=== PATIENT | male | born 1985 | race Caucasian/White ===

== ENCOUNTER 2024-10-12 04:08 | Observation (INO) | payer BC, SELFPAY ==
[2024-10-12] VITALS (8 sets, daily range): BP systolic 89–115; BP diastolic 59–87; BMI 32.8
--- NOTE | 2024-10-12 00:18 | ED.GENMED ---
History of Present Illness
General
Chief Complaint: Rectal Bleeding
Source: patient
Exam Limitations: none
Time Seen by Provider: 10/12/24 00:18
History of Present Illness
History of Present Illness:
See MDM
Past History
Past History
ED Past Medical History: Other (Crohns)
ED Past Surgical History: Bowel resection
Social History
Tobacco: Non-smoker
Alcohol: None
Phy Exam
Physical Exam
Physical Exam:
See MDM
Course
Orders/Labs/Results
Orders:
Orders
10/12/24 00:23
Electrocardiogram (*1) Urgent
Reason for Study: Syncope
EKG- Treatment ONCE
10/12/24 00:40
Type+Screen Urgent
Complete Blood Count/With Diff Urgent
Comprehensive Metabolic Panel Urgent
10/12/24 01:15
ABO2 Urgent
BBK Wristband Number:
Associate notified that ABO2 has been ordered: [id number]
Date: 10/12/24
Time: 01:10
Tag Stringer ID: [id number]
10/12/24 01:44
0.9% Sodium Chloride 1000 ml [Nss] 1,000 ml IV BOLUS
10/12/24 03:53
Admit/Transfer Patient As Directed
Co-Sign Provider:
Level of Care: Observation services
Assign to:: Medical/Surgical
Physician / Group: hospitalist
Diagnosis: rectal bleeding
Code Status As Directed
Resuscitation Status: Full Code
PRN Pain Medication Management As Directed
May give lesser potent ordered pain med per pt: Yes
preference::
Protocol:: Medication orders for pain may be administered in a
manner that supports deferring to patient preference
when the pt is:
- Requesting an ordered lesser potent pain medication.
Least to most potent pain medications are defined
as: acetaminophen < NSAID < tramadol < opioids
(morphine, oxycodone, hydromorphone).
- Requesting a lesser dose of the same medication IF
ORDERED.
- Requesting a less intrusive route of administration
if both routes are prescribed by the provider (PO <
IV).
Abnormal Lab Results
10/12/24
00:40
WBC 11.0 H 10^3/uL
(4.8-10.8)
RBC 4.57 L 10^6/uL
(4.70-6.10)
MPV 12.0 H fL
(7.4-10.4)
Abs Immat Gran (auto) 0.1 H 10^3/uL
(0-0.05)
Absolute Neuts (auto) 7.4 H 10^3/uL
(1.4-6.5)
Absolute Monos (auto) 1.2 H 10^3/uL
(0.1-0.6)
Lymphocytes % 18.5 L %
(20.5-51.1)
Monocytes % 10.5 H %
(1.7-9.3)
10/12/24 00:40
10/12/24 00:40
Vital Signs
Initial and Last Documented VS:
Initial Vital Signs
Temp Pulse
98.3 F 66
10/12/24 00:23 10/12/24 00:23
Last Documented Vital Signs
Temp Pulse Resp BP Pulse Ox
98.3 F 75 17 104/68 98
10/12/24 00:23 10/12/24 04:00 10/12/24 03:30 10/12/24 04:00 10/12/24 04:00
MDM/Problems Addressed
Differential Diagnosis Includes:
HPI and MDM Narrative:
39-year-old male presenting for evaluation of rectal bleeding. Patient has a history of Crohn's disease where he is on daily Rinvoq. He had his yearly colonoscopy earlier today. The colonoscopy report is at bedside indicating that there is
ulceration at his bowel anastomosis. Tissue samples were obtained. Patient states he had a bowel resection about 14 years ago. He is not on blood thinners. He had a normal bowel movement at 5 PM. Since then, patient has had multiple episodes of
bright red rectal bleeding. Because of this, patient is becoming lightheaded when he stands up. He is concerned for blood transfusion. He denies any fevers or abdominal pain
Physical exam
General: Well appearing and non-toxic
HEENT: protecting airway
Neck: appears supple
CV: No evidence of cyanosis
Resp: No accessory muscle use
Abd: Non-distended. Soft and nontender
Extremities: No deformities
Neuro: alert
Psych: Normal affect
Skin: Intact
Problems Addressed including Acute and Chronic Conditions affecting care:
1. Rectal bleeding
Acuity: acute
Prognosis: stable
Details: Most likely in the setting of bleeding from tissue samples taken during his colonoscopy earlier today. Will obtain hemoglobin testing
Updates
Hemoglobin stable but patient has had a few large bright red bleeding episodes. Patient becomes dizzy with exertion. Symptoms resolved when he lays down. Given the ongoing bleeding, will admit for hemoglobin trending
4:15 AM patient was already admitted and he had a regular bowel movement. Patient now requesting to be discharged home. I did relay this to the admitting hospitalist who will leave the disposition up to me. I did discuss with the patient that 1
episode of normal stool does not mean the bleeding has resolved. Patient acknowledges this and understands risks of going home
Due to the current electronic medical record, patient status was initially admission. Because of this, I cannot print discharge information. Patient was given verbal discharge information and verbally acknowledged my concerns.
Differential Diagnosis (but not limited to): Lower GI bleeding, internal hemorrhoid
Testing considered: CT abdomen/pelvis but he has no abdominal pain
Drug therapy (if applicable): OTC meds, please see d/c instruction regarding Rx drugs
Amount and/or Complexity of Data Reviewed
Clinical info obtained from: Patient
External data reviewed: N/A
Labs I independently reviewed (but not limited to): Hemoglobin stable
Radiology: N/A
Pulse Ox: not hypoxic
EKG independently reviewed: N/A
Turner And Former Automatic: N/A
Critical Care: N/A
Risk of Complication:
Social Determinants of health: Good social support
Discussed with other providers: Hospitalist
Escalation of Care includes Admit/Obs: Patient was initially going to be admitted due to ongoing bleeding but requested to be discharged home after only 1 episode of normal bowel movment
Occasional wrong word or 'sound a like' substitutions may have occurred due to the inherent limitations of voice recognition software. Read the chart carefully and recognize, using context, where substitutions have occurred.
*Critical Care Note
Total Time (30-74mins, 75-104mins- exclusive of procedures): Not Applicable
ED Attending Note
-
Portions of this chart may have been created with voice recognition software.� Occasional wrong word or��sound alike� substitutions may have occurred due to the inherent limitations of voice recognition software.
Discharge Plan
Departure
Patient Disposition: Home (Routine Discharge)
Date of Disposition: 10/12/24
Time of Disposition: 02:03
Admit to: Med/Surg
Presentation/result/management discussed w/ accepting MD/DO: Hospitalist
Patient with high blood pressure during this ER visit?: No
Discharge Problem:
Acute GI bleeding
Interventions
Interventions:
*Risk Screen - Suicide Last Done: 10/12/24 00:23
*General Assessment Last Done: 10/12/24 00:23
*Neglect/Abuse Screening Last Done: 10/12/24 00:23
*ED COVID-19 Vaccine History Last Done: 10/12/24 00:29
KA-Tjhstz-Bskfjvjbud Assessment Last Done: 10/12/24 00:30
ED- Cardiac Assessment Last Done: 10/12/24 00:30
ED- Pulmonary Assessment Last Done: 10/12/24 00:30
[2024-10-12 00:53] LABS: % Basophils 0.5 % (0-2); % Eosinophils 2.6 % (0-6); % Immature Granulocytes 0.5 % (0-0.5); % Lymphocytes 18.5 % (20.5-51.1); % Monocytes 10.5 % (1.7-9.3); % Neutrophils 67.4 % (42.2-75.2); Absolute Basophils 0.1 10^3/uL (0-0.2); Absolute Eosinophils 0.3 10^3/uL (0-0.7); Absolute Immature Granulocytes 0.1 10^3/uL (0-0.05); Absolute Monocytes 1.2 10^3/uL (0.1-0.6); Absolute Neutrophils 7.4 10^3/uL (1.4-6.5); Hematocrit 39.9 % (39.0-52.0); Hemoglobin 13.4 g/dL (13.0-18.0); Mean Corp Hgb Conc. 33.6 g/dL (33.0-37.0); Mean Corpuscular Hgb 29.3 pg (27.0-31.0); Mean Corpuscular Volume 87.3 fL (80.0-94.0); Nucleated Red Blood Cells % 0 % (-); Platelet Count 159 10^3/uL (130-400); Red Blood Cell Count 4.57 10^6/uL (4.70-6.10); Red Cell Dist. Width 12.7 % (11.5-14.5)
[2024-10-12 01:11] LABS: ALT (SGPT) 31 U/L (0-50); AST (SGOT) 24 U/L (17-59); Albumin 4.2 g/dl (3.5-5.0); Alkaline Phosphatase 59 U/L (38-126); Blood Urea Nitrogen 14 mg/dl (9-20); Carbon Dioxide 25 mmol/L (22-30); Chloride 102 mmol/L (98-107); Estimated Creatinine Clearance > 125 ml/min; Glucose 98 mg/dl (70-99); Potassium 4.1 mmol/L (3.5-5.1); Sodium 139 mmol/L (135-145); Total Bilirubin 1.1 mg/dl (0.2-1.3); Total Protein 6.9 g/dl (6.3-8.2); eGFR > 60.00
[2024-10-12] MEDS: NSS 1000 IV (01:49)
--- NOTE | 2024-10-12 04:07 | HPS.HSE ---
Family Physician
-
Family Physician: Chitra Barragan
Chief Complaint
-
rectal bleeding status post 4 routine colonoscopy yesterday.
History of Present Illness
This is a 39-year-old with past medical history of Crohn's disease who status post bowel resection and gets routine yearly screening comes in the emergency department with recurrent bloody bowel movements after arriving home status post colonoscopy.
Patient reports him being in usual state health prior to procedure. He denies any use of NSAIDs. He denies any aspirin or blood thinners. He had a routine yearly colonoscopy due to his Crohn's disease. Patient the procedure itself was
uneventful. He did appear to have an old ulcer at the site of the prior anastomosis. He reported that there was a biopsy done and patient went home without any issues.
Upon arrival at home he had a bowel movement that was initially bloody. Then he started having bloody bowel movements with small amount of blood was every 15 minutes until it turned into almost a continuous bloody bowel movement since. He felt
lightheaded. He called his physician and while talking to his physician patient was presyncopal. He was advised to come to the emergency department.
In the ED the patient has had 1 bloody bowel movement over the last 3 hours. He denies having any abdominal pain. He denies fevers or chills. He currently denies feeling dizzy or lightheaded.
He was afebrile with a temp of 38.3 blood pressure of 98/63 with a pulse of 6477% on room air. Hemoglobin was 13.4 and white count was 11 with a normal platelet count. Electrolytes BUN/creatinine were within normal limits.
Medical History
Past Medical History
Past Medical History: Reports Other (Crohn's disease)
Past Surgical History: Reports Bowel Resection
Social History
Tobacco: Non-smoker
Alcohol: None
Drug: None
Personal:
Living: With Family
Employment: Employed
Family History
Family History: Not pertinent
Allergies / Home Medications
Allergies reflects when Allergies were last updated in [facility].
Home Medications with original date entered in [facility]
Allergy/Medication List:
Allergies
Allergy/AdvReac Type Severity Reaction Status Date / Time
No Known Allergies Allergy Unverified 10/05/23 11:56
Home Medications
upadacitinib 45 mg tablet,extended release 24 hr (Rinvoq) 15 mg PO DAILY 10/05/23
Review of Systems
-
Constitutional: Reports No Symptoms
EENT: Reports No Symptoms
Respiratory: Reports No Symptoms
Cardiac: Reports No Symptoms
Abdomen/GI: Reports Bloody Stools
: Reports No Symptoms
Musculoskeletal: Reports No Symptoms
Skin: Reports No Symptoms
Neurological: Reports No Symptoms
Endocrine: Reports No Symptoms
Hematologic/Lymphatic: Reports No Symptoms
Psych: Reports No Symptoms
Physical Exam
Vital Signs
Vital Signs
Temp Pulse Resp BP Pulse Ox
98.3 F 75 17 104/68 98
10/12/24 00:23 10/12/24 04:00 10/12/24 03:30 10/12/24 04:00 10/12/24 04:00
Physical Exam
General: Well Developed, Well Nourished, No Apparent Distress and Comfortable
HEENT: NormoCephalic, Anicteric, Moist mucous membranes and Atraumatic
Respiratory: Clear
Cardiac: S1/S2 and Regular Rhythm
Breast: Deferred by me
GI: Soft, Non Tender, Non Distended and Normal Bowel Sounds
Genito-urinary: Deferred by me
Musculoskeletal: No Clubbing, No Cyanosis and No Edema
Skin: Warm
Neuro: AO x 3
Hematologic/Lymphatic: No Lymphadenopathy
Psych: Calm
Laboratory Results
-
10/12/24 00:40
10/12/24 00:40
Laboratory Results
Total Bilirubin 1.1 mg/dl (0.2-1.3) 10/12/24 00:40
AST 24 U/L (17-59) 10/12/24 00:40
ALT 31 U/L (0-50) 10/12/24 00:40
Alkaline Phosphatase 59 U/L (38-126) 10/12/24 00:40
Data Reviewed
-
Lab Data: Labs Reviewed by me
Old Records: Reviewed
Impression/Plan
-
IMPRESSION:
Rectal bleeding status post colonoscopy and biopsy. During the current colonoscopy the patient did have an apparent chronic ulcer at the anastomosis. No nsaids, asa or thinners.
PLAN:
1. GI bleed - Post colonoscopy completion versus rectal ulcer bleeding. HD stable. Hgb stable thus far. One bleeding episdoe in ED.
- admit to med-surg obs for now
- will advance diet as patient has not had a bm for some time
- laxatives with diet for now
- monitor bms, trend h/h
- type and screen in am
- held off GI consult unless continues to have bleeding.
DVT PPX - SCDs
Code status - Full code
UPDATE - Patient discharged from ED. Repeat bowel movements without blood, no dizziness and SBP stable. Will follow with GI.
== END 2024-10-12 05:05 | disposition home or self-care (01) ==
LOC: ED 04:08
PROVIDERS: ADMITTING PHYSICIAN Internal Medicine; EMERGENCY PHYSICIAN Student in an Organized Health Care Education/Training Program; FAMILY PHYSICIAN Internal Medicine Gastroenterology
DX: K91.840 Postprocedural hemorrhage of a digestive system organ or structure following a digestive system procedure (principal); Y83.8 Other surgical procedures as the cause of abnormal reaction of the patient, or of later complication, without mention of misadventure at the time of the procedure; Y73.0 Diagnostic and monitoring gastroenterology and urology devices associated with adverse incidents; Y92.9 Unspecified place or not applicable; K62.5 Hemorrhage of anus and rectum; K50.911 Crohn's disease, unspecified, with rectal bleeding; R55 Syncope and collapse; R42 Dizziness and giddiness; Z90.49 Acquired absence of other specified parts of digestive tract
CPT/HCPCS: 80053; 85025; 86850; 86900; 86901; 93005; 96360; 99284; G0378

== ENCOUNTER 2024-10-14 14:15 | Inpatient (IN) | payer BC, SELFPAY ==
[2024-10-14 09:50] VITALS: BP 144/90
--- NOTE | 2024-10-14 10:47 | ED.GENMED ---
History of Present Illness
General
Chief Complaint: Rectal Bleeding
Source: patient
Exam Limitations: none
Time Seen by Provider: 10/14/24 10:22
Nursing documentation reviewed up to this point in time: agreed with
History of Present Illness
History of Present Illness:
39 yo male w h/p Crohn's disease, 10 yrs ago colon and small intestine resection with colostomy that was reversed, here for rectal bleeding post colonoscopy 3 days ago at [place]. Had some rectal bleeding later that day with syncopal episode and
came here that night, had Hgb 13.4 (from 14.5 mamta week prior), observed overnight and sent home next day as no further bleeding.
2 days ago had no bloody stools.
Yesterday 2 a.m. had BM with 'some but not much blood.'
Today no blood in stool this a.m.
States he feels 'not dizzy but a little lightheaded.' 'I don't feel like myself.'
Reports that GI Dr. Escobar contacted our GI doctor and was told he would be admitted for a colonoscopy.
Denies CP, SOB, abdominal pain.
Past History
Past History
ED Past Medical History: Other (Crohns)
ED Past Surgical History: Bowel resection
Social History
Tobacco: Non-smoker
Alcohol: Occasional
Personal:
Living: with family
Employment: Employed
Review of Systems
Review of Systems
Allergies reviewed?: Yes
All Other Systems: ROS reviewed and negative except as documented in HPI and ROS
Constitutional: Denies fever or fatigue
Respiratory: Denies trouble breathing
Cardiac: Denies chest pain
ABD/GI: Reports bloody stools; Denies abdominal pain, nausea, vomiting or diarrhea
: Denies dysuria or difficulty voiding
Musculoskeletal: Reports no symptoms
Skin: Reports no symptoms
Neurological: Reports no symptoms
Phy Exam
Physical Exam
Physical Exam:
GENERAL: No acute distress. A&Ox3.
CONSTITUTIONAL: Afebrile.
EYES: Clear, conjunctivae normal
ENMT: pink, moist mucus membranes, Pharynx nl
RESPIRATORY: Regular respirations, nonlabored, lungs clear.
CARDIOVASCULAR: Regular rate and rhythm, no murmurs, no rubs.
GI: Soft, nontender, normal BS
Rectal: No stool, mucus with a pink joelle hematests positive.
MUSCULOSKELETAL: Moves with ease. Well perfused.
SKIN: Warm, dry, pink
PSYCH: Normal mood and affect. Well kept, interactive and appropriate
NEUROLOGIC: Awake, alert and oriented. No focal neurological deficits
Course
Orders/Labs/Results
Orders:
Orders
10/14/24 Lunch
NPO
Allow oral meds: No
Allow clear liquids: No
NPO with Ice Chips: No
10/14/24 10:43
Complete Blood Count/With Diff Urgent
Erythrocyte Sed Rate Urgent
Comment: ESR ADDED ON BY FLOOR 2:20PM 10-14-24
10/14/24 10:52
Prothrombin Time Urgent
10/14/24 11:44
Consult Gastroenterology [GASTROINTESTINAL CONSULT] Urgent
Consulting Provider: Darling Flaherty
Was physician already notified: Yes
Reason for consult: rectal bleed post colonoscopy
10/14/24 13:06
Admit/Transfer Patient As Directed
Co-Sign Provider:
Level of Care: Inpatient admission
Assign to:: Medical/Surgical
Physician / Group: Hospitalist
Diagnosis: Hematochezia
Reason for Hospitalization: Hematochezia
Expected length of stay greater than two midnights?: Yes
ELOS- Estimated Length of Stay in days: 3
I certify the patient meets the requirements for IP care: Yes
10/14/24 13:07
PRN Pain Medication Management As Directed
May give lesser potent ordered pain med per pt: Yes
preference::
Protocol:: Medication orders for pain may be administered in a
manner that supports deferring to patient preference
when the pt is:
- Requesting an ordered lesser potent pain medication.
Least to most potent pain medications are defined
as: acetaminophen < NSAID < tramadol < opioids
(morphine, oxycodone, hydromorphone).
- Requesting a lesser dose of the same medication IF
ORDERED.
- Requesting a less intrusive route of administration
if both routes are prescribed by the provider (PO <
IV).
10/14/24 13:08
Code Status As Directed
Resuscitation Status: Full Code
10/14/24 13:14
Bisacodyl [Dulcolax] 10 mg RECTAL [id number] PRN
Docusate W/Senna [Senokot-S] 1 tablet PO BIDPRN PRN
Polyethylene Glycol Powder [Miralax] 17 grams PO DAILYPRN PRN
10/14/24 14:09
Bisacodyl [Dulcolax] 10 mg PO NOW STA
10/14/24 15:00
Colyte Peg Electrolyte Soln [Nulytely Solution] 4 liters PO ONCE ONE
10/14/24 15:21
Flush (0.9% Sodium Chloride) [Flush (Nss)] See Dose Instructions IV PER PROTOCOL
10/14/24 15:21
Activity As Directed
Activity Level: Out of Bed-Early Mobility
INT (Intravenous Needle Therapy) As Directed
Comment: Place 2 IV catheters of the largest bore possible until stable
Orthostatic Vital Signs As Directed
Orthostatic VS Frequency: Now
Comment: then every four hours for twenty-four hours
Pneumatic Compression Sleeves As Directed
Type: Knee high
Vital Signs As Directed
Frequency: Per unit guidelines
DX Deep Vein Thrombosis Video Routine
10/15/24 06:00
Complete Blood Count/No Diff IN AM
Complete Blood Count/With Diff IN AM
10/15/24 08:00
upadacitinib [Rinvoq] See Dose Instructions PO DAILY
Abnormal Lab Results
10/14/24
10:43
RBC 3.84 L 10^6/uL
(4.70-6.10)
Hgb 11.3 L g/dL
(13.0-18.0)
Hct 33.6 L %
(39.0-52.0)
MPV 11.8 H fL
(7.4-10.4)
Absolute Monos (auto) 0.7 H 10^3/uL
(0.1-0.6)
Monocytes % 9.9 H %
(1.7-9.3)
10/14/24 10:43
Vital Signs
Initial and Last Documented VS:
Initial Vital Signs
Temp Pulse Resp BP Pulse Ox
98.4 F 63 16 144/90 98
10/14/24 09:50 10/14/24 09:50 10/14/24 09:50 10/14/24 09:50 10/14/24 09:50
Last Documented Vital Signs
Temp Pulse Resp BP Pulse Ox
98 F 62 18 124/75 100
10/14/24 15:45 10/14/24 12:00 10/14/24 15:45 10/14/24 10:55 10/14/24 15:45
MDM/Problems Addressed
MDM/Problems Addressed:
39 yo male w h/p Crohn's disease, 10 yrs ago colon and small intestine resection with colostomy that was reversed, here for rectal bleeding post colonoscopy 3 days ago at [place]. Had some rectal bleeding later that day with syncopal episode and
came here that night, had Hgb 13.4 (from 14.5 one week prior), observed overnight and sent home next day as no further bleeding.
2 days ago had no bloody stools.
Yesterday 2 a.m. had BM with 'some but not much blood.'
Today no blood in stool this a.m.
States he feels 'not dizzy but a little lightheaded.' 'I don't feel like myself.'
Reports that GI Dr. Escobar contacted our GI doctor and was told he would be admitted for a colonoscopy.
Denies CP, SOB, abdominal pain.
Appears well, NAD, VSS
11:[address] with [address] Escobar She states she saw active disease in the terminal ilium and at the anastomosis site, main concern is that whenever pt eats it seems to stimulate stools with bleeding.
She spoke with our GI Dr. Flaherty and expects pt to have colonoscopy today or tomorrow.
11:30
Hgb now 11.[address] Flaherty
Plan: Admit to Hospitalist, GI consult in
Hospitalist notified of admission
*Critical Care Note
Total Time (30-74mins, 75-104mins- exclusive of procedures): Not Applicable
ED Attending Note
-
Portions of this chart may have been created with voice recognition software.� Occasional wrong word or��sound alike� substitutions may have occurred due to the inherent limitations of voice recognition software.
Discharge Plan
Departure
Patient Disposition: Admit
Date of Disposition: 10/14/24
Time of Disposition: 11:42
Admit to: Med/Surg
Presentation/result/management discussed w/ accepting MD/: Hospitalist
Condition: Good
Discharge Problem:
Acute GI bleeding
Interventions
Interventions:
*Risk Screen - Suicide Last Done: 10/14/24 09:50
*General Assessment Last Done: 10/14/24 10:55
*Neglect/Abuse Screening Last Done: 10/14/24 09:50
ED- Fall Risk Assessment Last Done: 10/14/24 10:55
*ED COVID-19 Vaccine History Last Done: 10/14/24 10:55
*Nursing Disposition Last Done: 10/14/24 15:21
PL-Bsvqjm-Muippxzmku Assessment Last Done: 10/14/24 10:55
ED- Cardiac Assessment Last Done: 10/14/24 10:55
ED- Pulmonary Assessment Last Done: 10/14/24 10:55
Discharge Date and Time
Discharge Date/Time: 10/14/24 15:21
[2024-10-14 10:55] VITALS: BP 124/75; BMI 25.9
[2024-10-14 11:08] LABS: % Basophils 0.7 % (0-2); % Eosinophils 4.4 % (0-6); % Immature Granulocytes 0.4 % (0-0.5); % Lymphocytes 31.3 % (20.5-51.1); % Monocytes 9.9 % (1.7-9.3); % Neutrophils 53.3 % (42.2-75.2); Absolute Basophils 0.1 10^3/uL (0-0.2); Absolute Eosinophils 0.3 10^3/uL (0-0.7); Absolute Lymphocytes 2.2 10^3/uL (1.2-3.4); Absolute Monocytes 0.7 10^3/uL (0.1-0.6); Absolute Neutrophils 3.8 10^3/uL (1.4-6.5); Hematocrit 33.6 % (39.0-52.0); Hemoglobin 11.3 g/dL (13.0-18.0); Mean Corp Hgb Conc. 33.6 g/dL (33.0-37.0); Mean Corpuscular Hgb 29.4 pg (27.0-31.0); Mean Corpuscular Volume 87.5 fL (80.0-94.0); Mean Platelet Volume 11.8 fL (7.4-10.4); Nucleated Red Blood Cells % 0 % (-); Platelet Count 167 10^3/uL (130-400); Red Blood Cell Count 3.84 10^6/uL (4.70-6.10); Red Cell Dist. Width 13.2 % (11.5-14.5); White Blood Cell Count 7.1 10^3/uL (4.8-10.8)
[2024-10-14 11:11] LABS: PT 13.5 Sec (11.4-14.6)
--- NOTE | 2024-10-14 13:17 | CON.GI ---
Addendum entered and electronically signed by Darling Thompson Do, MD 10/14/24 17:58:
I personally performed a history and physical exam of the patient and discussed management with the resident. I reviewed the resident's note and agree with the documented findings and plan of care HPI/CC.
[place] is a 39yo M with h/o Crohn's colitis and ileitis s/p colectomy on rinvoq managed by Dr Barragan at [facility]. He had routine colonoscopy on Monday and post procedure had hematochezia. He was in ER and returned when it did not subside. No AC or
chronic nsaid. Vitals stable. NTTP, NABS, surgical scars well healed. Labs Hbg 11.
Impression
- Post colonoscopy hematochezia
Suspect from bx at the ileocolonic anastomosis ulcer
- Anemia
- Crohn's disease
Recommendations
- CLD, NPO at [facility] for colonoscopy tomorrow
- Golylte prep now
- Monitor serial H/H
- Dr Barragan his OP GI updated
updated bedside. Will follow with you
Original Note:
Consultation
-
Date/Time Consultation Requested: 10/14/24,11:44
Date/Time Consultation Performed: 10/14/24,13:20
Requesting Provider: Sheela Gonsalez
Performing Provider: Darling Flaherty
Reason for Consultation: Post-colonoscopy bleed
Medical History
Chief Complaint / HPI
Chief Complaint: Blood in stools post colonoscopy -3 days
History of Present Illness:
Patient is a 39-year-old male with past medical history of upadacitinib managed Crohn's disease who underwent routine yearly surveillance colonoscopy 2 days ago. The procedure went well and he had no issues, he went home and noticed small amount of
blood in the stools that gradually became more and more along with increased frequency of stools. He called his doctor who suggested to visit the emergency if it persists. As he was going to the washroom he had a syncopal episode and he fell
down,911 was called and he was brought to the emergency on Monday double end sewer on 10/12/24. On repeating the blood work his hemoglobin has dropped by 1 point in less than a day. He was kept under observation and was discharged when he had no
bloody bowel movements by the evening. He went home and had soup, the next day he had a bagel and was all right but then he again had blood in stools, he observed if it would stop but he had another bowel movement with blood and he also developed a
headache so he came to the emergency for further evaluation.
He says that the blood in stools have progressively decreased over time, and now it is mixed with stools rather than pure blood. He otherwise feels well and has no fever ,chills, abdominal pain, loss of appetite, syncopal episodes. He is able to
go to the washroom by himself and has no issues with sleep or appetite. Patient was referred by for repeat colonoscopy to identify any source of bleed and management as appropirate.
Colonoscopy revealed a superficial ulcer close to issac terminal anastomosis and it was biopsied,no polyps were seen or removed.
Past Medical History
Past Medical History: Other (crohns disease)
Past Surgical History: Bowel Resection (Ileostomy reversal done 13 years ago,no issues since then) and Other
Social History
Tobacco: Non-Smoker
Alcohol: Occasional
Drug: None
Personal:
Living: With Family
Employment: Employed
Family History
Family History: Reviewed & Not Pertinent
Allergies / Home Medications
Allergy/AdvReac Type Severity Reaction Status Date / Time
No Known Allergies Allergy Verified 10/14/24 09:55
�Medication �Instructions �Recorded
upadacitinib 45 mg tablet,extended 15 mg PO DAILY 10/05/23
release 24 hr (Rinvoq)
Review of Systems
-
All other systems: A 12 pt ROS was Negative except as stated above in HPI
Vital Signs
Temp Pulse Resp BP Pulse Ox
97.6 F 68 19 124/75 99
10/14/24 10:55 10/14/24 11:15 10/14/24 11:15 10/14/24 10:55 10/14/24 10:55
Physical Exam
Exam
General: Well Developed, Well Nourished and No Apparent Distress
HEENT: Anicteric and Moist Mucous Membranes
Respiratory: Clear and Wheezes (No ronchi,rales or wheezes)
Cardiac: S1/S2 and Regular Rhythm
GI: Soft, Non Tender and Normal Bowel Sounds
Genito-urinary: No Costovertebral Tender
Musculoskeletal: No Clubbing and No Edema
Skin: Warm and Dry
Neuro: Awake, Alert and No Motor Deficits
Hematologic/Lymphatic: No Lymphadenopathy
Psych: Calm
Results
WBC 7.1 10^3/uL (4.8-10.8) 10/14/24 10:43
Hgb 11.3 g/dL (13.0-18.0) L 10/14/24 10:43
Hct 33.6 % (39.0-52.0) L 10/14/24 10:43
MCV 87.5 fL (80.0-94.0) 10/14/24 10:43
Plt Count 167 10^3/uL (130-400) 10/14/24 10:43
Absolute Neuts (auto) 3.8 10^3/uL (1.4-6.5) 10/14/24 10:43
PT 13.5 Sec (11.4-14.6) 10/14/24 10:52
INR 1.00 10/14/24 10:52
Diagnostic Image Results:
Prior GI Procedures:
EGD:
Colonoscopy: Annually, Last one
Colonoscopy revealed a superficial ulcer close to issac terminal anastomosis and it was biopsied,no polyps were seen or removed
Assessment / Plan
-
IMPRESSION
Patient is a 39-year-old male with Rinvoq managed Crohn's disease, had usual annual colonoscopy done on October 11, 2024, and ulcer was biopsied near the ileocecal valve, procedure went well with no issues. Patient started to bleed later in the
evening and was ultimately admitted to the hospital for a syncopal episode, he was observed for blood in the stools and he left AMA once there were stools with no bleed. He says that the bleeding has gradually decreased in amount and is now just
mixed with stool. He does not want to stay in the hospital again today and wants an urgent colonoscopy.
The cause of bleed post colonoscopy could be biopsy site/friable mucosa/infectious/ischemic.
No syncopal episodes in last 24 hours
Hemoglobin drop to 11.3 from 13.42 days ago
Still has blood in stools, last bowel movement with mixed blood in our ago
Denies any fever, chills, nausea, vomiting,
Reports some mild chest pain
ASSESSMENT/PLAN
Post colonoscopy bleeding from the biopsy site?
Infection
Rectal ulcer bleed
Hemorrhoids
Bleeding from friable mucosa/perforation
ischemic colitis
NPO
Start bowel prep for repeat colonoscopy
Counseled patient about the possible management plans
Monitor H&H
Monitor stool for any blood
Stool studies
Inflammatory markers
-
-
Thank you for consultation and allowing me to participate in the patient's care. Please call the [employer] consultant GI physician during the after hours with any questions or concerns.
--- NOTE | 2024-10-14 13:40 | HPS.HSE ---
Family Physician
-
Family Physician: Anny Rasmussen MD
Chief Complaint
-
Rectal bleeding
History of Present Illness
39-year-old male with PMH of Crohn's disease on daily Rinvoq, s/p small/large bowel resection 10�14 years ago (does remember exact dates), subsequently reversed, who presented to ED with recurrent BRBPR. Patient was recently seen in the ED on
10/12 days ago with rectal bleeding, dizziness on exertion, s/p colonoscopy Dr. Escobar at [facility]. Patient gets yearly colonoscopy and reported that he had a colonoscopy 3 days ago and upon return to his home, started having bloody BMs every 15
minutes which later turned into continuous bloody BMs with lightheadedness and presyncope. He called his GI doctor who instructed him to go to the ED. Patient stayed overnight and unfortunately left AMA early in the morning after having 1 episode
of nonbloody BM. He reports that yesterday, he started having another episode of gross bloody BM which slowly improved but still has some blood in his stool. He reports that his recent colonoscopy was positive for ulceration not the bowel
anastomosis and thinks that the GI doctor at [facility] has hit a blood vessel while doing colonoscopy. He currently denies dizziness, lightheadedness, abdominal pain, chest pain, shortness of breath, fever or chills. He remains hemodynamically
stable and afebrile in the ED with BP 124/75, pulse 68, respiratory 19, blood pressure 97.6 saturating at 99% on room air.
Medical History
Past Medical History
Past Medical History: Reports Other (Chron's disease)
Past Surgical History: Reports Bowel Resection
Social History
Tobacco: Non-smoker
Alcohol: None
Drug: None
Personal:
Living: With Family
Employment: Employed
Family History
Family History: Not pertinent
Allergies / Home Medications
Allergies reflects when Allergies were last updated in [facility].
Home Medications with original date entered in [facility]
Allergy/Medication List:
Allergies
Allergy/AdvReac Type Severity Reaction Status Date / Time
No Known Allergies Allergy Unverified 10/05/23 11:56
Home Medications
upadacitinib 45 mg tablet,extended release 24 hr (Rinvoq) 15 mg PO DAILY 10/05/23
Review of Systems
-
History Source: Patient and Family
A 12 point ROS was completed and negative except as noted: Yes
Constitutional: Reports No Symptoms
EENT: Reports No Symptoms
Respiratory: Reports No Symptoms
Cardiac: Reports No Symptoms
Abdomen/GI: Reports Bloody Stools
: Reports No Symptoms
Musculoskeletal: Reports No Symptoms
Skin: Reports No Symptoms
Neurological: Reports No Symptoms
Endocrine: Reports No Symptoms
Hematologic/Lymphatic: Reports No Symptoms
Psych: Reports No Symptoms
Physical Exam
Vital Signs
Vital Signs
Temp Pulse Resp BP Pulse Ox
97.6 F 68 19 124/75 99
10/14/24 10:55 10/14/24 11:15 10/14/24 11:15 10/14/24 10:55 10/14/24 10:55
Physical Exam
General: Well Developed, Well Nourished, No Apparent Distress and Comfortable
HEENT: NormoCephalic, Anicteric, Moist mucous membranes and Atraumatic
Respiratory: Clear
Cardiac: S1/S2 and Regular Rhythm
Breast: Deferred by me
GI: Soft, Non Tender, Non Distended and Normal Bowel Sounds
Genito-urinary: Deferred by me
Musculoskeletal: No Clubbing, No Cyanosis and No Edema
Skin: Warm and Dry
Neuro: Awake and AO x 3
Hematologic/Lymphatic: No Lymphadenopathy
Psych: Calm and Anxious
Laboratory Results
-
10/14/24 10:43
Laboratory Results
PT 13.5 Sec (11.4-14.6) 10/14/24 10:52
INR 1.00 10/14/24 10:52
Data Reviewed
-
Lab Data: Labs Reviewed by me
Old Records: Reviewed
Impression/Plan
-
IMPRESSION: 39-year-old male with PMH of chron's disease on daily Rinvoq, s/p small/large bowel resection 10-14 years ago, subsequently reversed, presenting with rectal bleeding s/p colonoscopy Dr. Escobar ([facility]) 10/11.
Assessment/plan:
#Hematochezia
-Admit to MedSurg.
-Hb stable at 11.3, voluminous BRBPR resolved however still having blood-streaked BMs.
-GI consulted and following.
-NPO.
-ESR, CRP.
-Stool studies.
-Colonoscopy potentially in a.m. per GI.
-Follow CBC.
#Acute blood loss anemia
-Most likely from friable GI blood vessels vs GI ulcer bleeding.
-Monitor CBC.
-Follow H&H if having recurrent bloody BMs.
DVT PPx: SCDs
CODE STATUS: Full code
--- NOTE | 2024-10-14 14:13 | EDRN ---
the pt pressed the call campos and this RN and Eleanor QUINONEZ entered the pts room, the pt stated that he wanted something to eat if he wasn't getting the colonoscopy today and if he wasn't getting the colonoscopy today he wanted to know why it couldn't
be today because the pt stated, 'I haven't eaten in two days so i have been prepping for this for two days so i either need it done today or i need food i don't understand why they can't do it today and why i have to do a prep', this RN notified the
pt that he was NPO and educated the pt and the pts on what that meant, this RN also reached out to Dr. Zulay Beavers and notified them of the pt and the pts 's concerns, the pt is resting in stretcher in the lowest position, side rails up
x2 call campos within reach, HOB elevated, no s/s of distress, will continue to monitor the pt closely
--- NOTE | 2024-10-14 14:34 | EDRN ---
the pts came out of the pts room and approached this RN at the nurses station and stated, 'I am going to need an ETA for when the doctor will get here, we have been here all day and we are tired and this is ridiculous', this RN notified the pts
that this RN would reach out to the provider again
--- NOTE | 2024-10-14 15:01 | EDRN ---
Dr. Flaherty was at the pts bedside and spoke to the pt and the pts and then left the bedside, shortly after the pts approached this RN at the nurses station and stated to this RN, 'Where is that GI doctor that was just in here', this RN
notified the pts that the provider left the unit, the pts then stated to this RN, 'Well I need you to tell her that I need my husbands colonoscopy to be the first thing that she does in the morning like the very first procedure, i need it
to be done right away', this RN notified the pts that this RN would let the provider know, this RN tiger texted Dr. Flaherty again and notified Dr. Flaherty about the pts 's wishes, the pt is resting in stretcher in the lowest position, side rails up
x2, call campos within reach, HOB elevated, no s/s of distress, the pt denies needing anything at this time, the pt was provided with a carlyle heide with ice per Dr. Flaherty's approval, this RN called the receiving unit and notified them that paper report
would be tubed up
[2024-10-14 15:09] LABS: Erythrocyte Sed Rate 19 mm/hour (0-20)
[2024-10-14] MEDS: NULYTELY SOLUTION 4 LITERS PO (15:11)
[2024-10-14 15:45] VITALS: BP 112/73; BP 127/69; BP 127/79; PULSE 70; PULSE 71; PULSE 73; BMI 32.6
--- NOTE | 2024-10-14 15:45 | PTCARENOTE ---
Received pt from ER.Pt ambulated into room without difficulty. Pt awake, alert and oriented x3, Pt has no c/o pain at this time.Pt VSS 100% on RA. Pt is drinking bowel prep, refused Dulcolax PO GI aware. Pt oriented to room,call campos within
reach,plan of care continues.
--- NOTE | 2024-10-14 18:11 | PTCARENOTE ---
Pt drank a little less than half of bowel prep, called this RN into bathroom,Pt said he is only expelling clear liquid. no visible stool noted in toilet clear along with urine. Pt requesting to be done drinking prep, reached out to GI, they would
like pt to drink full prep, Pt made aware. Pt allowed clear liquids, plan of care continues.
[2024-10-14 18:31] LABS: Hematocrit 35.6 % (39.0-52.0); Hemoglobin 12.1 g/dL (13.0-18.0)
[2024-10-14 19:55] VITALS: BP 105/69; BP 108/70; BP 116/72; PULSE 68; PULSE 71; PULSE 74
[2024-10-14] MEDS: AMBIEN 5 MG PO (21:59)
[2024-10-14 23:43] VITALS: BP 109/72; BP 113/70; BP 99/67; PULSE 63; PULSE 73; PULSE 78
[2024-10-15 03:04] LABS: Hemoglobin 10.7 g/dL (13.0-18.0)
[2024-10-15 07:20] VITALS: BP 108/64; PULSE 58
--- NOTE | 2024-10-15 07:24 | W.PN.HOSP.TC ---
Addendum entered and electronically signed by Florecita Lamb MD 10/15/24 14:33:
I saw and evaluated the patient independently. I reviewed the resident�s note and agree with findings and plan as documented by Dr. Goddard.
GENERAL: well developed, well nourished, male in no apparent distress
HEENT: NC/AT
HEART: regular rate and rhythm, +S1, +S2
LUNGS : clear to auscultation bilaterally
ABDOM: soft, nontender, nondistended, + bowel sounds
EXT: no cyanosis, clubbing, or edema
NEUROLOGIC: grossly intact
Hematochezia--Resolved, no evidence of bleeding or bloody stool--Colonoscopy positive for ulceration in ileocolic anastomosis site, with multiple scattered nonbleeding erosions from recent biopsy site, no active bleeding seen.
Acute blood loss anemia-Hb stable at 10.7-Most likely from friable GI blood vessels vs GI ulcer bleeding.
DVT PPx: SCDs
CODE STATUS: Full code
OK for d/c
Original Note:
Today's Communication/Plan
-
Discharge planning.
Assessment / Plan
Assessment / Plan
IMPRESSION: 39-year-old male with PMH of chron's disease on daily Rinvoq, s/p small/large bowel resection 10-14 years ago, subsequently reversed, presenting with rectal bleeding s/p colonoscopy Dr. Escobar ([facility]) 10/11.
Assessment/plan:
#Hematochezia
-Resolved, no evidence of bleeding or bloody stool.
-ESR WNL.
-Colonoscopy positive for ulceration in ileocolic anastomosis site, with multiple scattered nonbleeding erosions from recent biopsy site, no active bleeding seen.
#Acute blood loss anemia
-Hb stable at 10.7.
-Most likely from friable GI blood vessels vs GI ulcer bleeding.
-Monitor CBC.
DVT PPx: SCDs
CODE STATUS: Full code
Anticipated Discharge: Today
Subjective/Interval History
-
Date of Service: October 15, 2024
Patient seen and examined sitting comfortable in bed ready for his colonoscopy. He reports no chest pain shortness of breath abdominal pain nausea or vomiting.
Objective Data
-
Labs:
Laboratory Results
10/15/24 10/15/24
02:36 06:00
WBC Pending
Hgb 10.7 L Pending
Hct 31.0 L Pending
Plt Count Pending
Sodium Pending
Potassium Pending
Chloride Pending
Carbon Dioxide Pending
BUN Pending
Creatinine Pending
Glucose Pending
Calcium Pending
Total Bilirubin Pending
AST Pending
ALT Pending
Alkaline Phosphatase Pending
Vital Signs:
Vital Signs
Temp Pulse Resp BP Pulse Ox
97.5 F 70 20 127/69 99
10/14/24 23:43 10/14/24 15:45 10/14/24 23:43 10/14/24 15:45 10/14/24 23:43
I&O
10/14/24 10/15/24 10/16/24
06:59 06:59 06:59
Intake Total 720 / 720
Balance 720 / 720
Review of Systems
-
History Source: Patient
All other systems: Reviewed and negative
Physical Exam
-
General: Well Developed and No Apparent Distress
HEENT: Normocephalic, Atraumatic and Moist Mucous Membranes
Respiratory: Clear to Auscultation
Cardiac: Regular Rhythm and S1/S2; Negative Murmur, Rub or Gallop
GI: Soft, Nontender, Nondistended and Normal Bowel Sounds; Negative Organomegaly
Rectal: Deferred by Provider
Musculoskeletal: No Clubbing, No Cyanosis and No Edema
Skin: Warm; Negative Rash
Neuro: Awake, AO x 3 and Nonfocal/Grossly Intact
Psych: Calm
Data Reviewed
-
Labs: Labs Reviewed by me and Discussed with Physician
Old Records: Reviewed
--- NOTE | 2024-10-15 09:19 | W.PN.UPDATE ---
Update Note
Progress Note Update
Colonoscopy done
Ulceration seen at ileocolonic anastomosis. No visible vessel or high risk stigmata
Scattered erosions in colon from recent biopsies
Normal issac-TI
REC:
Regular diet
OK for d/c from GI standpoint
[2024-10-15 09:30] VITALS: BP 97/61
[2024-10-15 09:45] VITALS: BP 96/69
[2024-10-15 09:56] VITALS: BP 110/60
--- NOTE | 2024-10-15 11:46 | CM ---
Alert awake oriented pt who lives with Nguyen and 2 yo dgt.who live in a 2 story home with 3 steps to enter and 10 step to bed bathroom. will drive him home. Offered VN he declined need.Pt said he is ready for dc.
No adaptive devices.
No VN /SNF hx.
Pharmacy [facility]
PCP Dr Rasmussen
PLAN Home no Needs
--- NOTE | 2024-10-15 13:49 | W.DCSUMMARY ---
Addendum entered and electronically signed by Florecita Lamb MD 10/15/24 14:34:
Read, reviewed, and agree. See same day progress note for additional details. Time spent coordinating care, DC planning, review of DC plan of care with resident, transition of care, review of records in EMR, med rec, consults, notes, d/w
consultants, nursing, family, and CM = less than 30 minutes
Original Note:
Discharge Summary
Discharge Data
Date of Admission: 10/14/24
Date of Discharge: 10/15/24
-
Pending Results: No
Hospital Course
Discharging Physician : Florecita Lamb MD ; Parviz Goddard MD
Disposition : Home
Primary care physician : Anny Rasmussen MD
Principal Discharge diagnosis :
Hematochezia
Acute blood loss anemia
Colonic erosions
Ileocolonic ulcerations
Hospital Course :
39-year-old male with PMH of Crohn's disease on daily Rinvoq, gets yearly colonoscopy, s/p small/large bowel resection 10�14 years ago (does remember exact dates), subsequently reversed, who presented to ED with recurrent BRBPR. Patient was
recently seen in the ED on 10/12 days ago with rectal bleeding, dizziness on exertion, s/p colonoscopy Dr. Escobar at [place]. Patient had a colonoscopy 3 days [facility] and upon return to his home, started having bloody BMs every 15 minutes which later
turned into continuous bloody BMs with lightheadedness and presyncope. He called his GI doctor who instructed him to go to the ED. Patient stayed overnight and unfortunately left AMA early in the morning after having 1 episode of nonbloody BM. 2
days later, he started having another episode of gross bloody BM which slowly improved but still has some blood in his stool.
While in the ED, his hemoglobin was 11.3, BP 144/90, respiratory 16, pulse 63 he was afebrile and saturating at 98% on room air. His GI doctor communicated with the GI doctor on duty in the hospital and agreed to do a repeat colonoscopy t to
evaluate rectal bleeding.
Patient was admitted to the hospital overnight and colonoscopy was completed as reported below.
Condition on discharge: Awake, alert and oriented x3, answer question properly, able to make own decision and take care of activities of daily living, speech clear and comprehensive, continent of the bowel and bladder, ambulate without curriculum assistant principal,
medically stable to go home where lives with the family independently.
Important imaging findings :
Colonoscopy 10/15/2024:
There was evidence of a prior end-to-end ileo-colonic anastomosis in the descending colon. This was patent and was characterized by ulceration.
There was no visible vessel or high risk stigmata of bleeding. The anastomosis was traversed.
The issac-terminal ileum appeared normal.
Multiple scattered non-bleeding erosions from recent biopsies were found in the sigmoid colon and in the descending colon. No stigmata of recent bleeding were seen.
Discharge Plan
-
Patient Disposition: Home (Routine Discharge)
Discharge Diagnosis/Procedures: Hematochezia
Acute blood loss anemia
Colonic erosions
Ileocolonic ulcerations
Condition: Good
Diet: No restrictions
Additional Diets: High fiber diet
Activity: No restrictions
Driving Restrictions: As prior to admission
Bathing Restrictions: None
Referrals:
Anny Rasmussen MD [Family Provider] - in less than 1 week
Prescriptions:
Continued
Rinvoq 45 mg Tablet Extended Release 24 Hr
15 mg PO DAILY
Patient Comments:
patient gets this medication filled at [facility] in [place]
Discharge Orders:
Discharge Patient (As Directed); Ordered 10/15/24
Ordered By: Parviz Goddard
Discharge Date and Time
Discharge Date/Time: 10/15/24 11:47
Print Language: GREENLAND[place]
== END 2024-10-15 11:47 | disposition home or self-care (01) | DRG 394 ==
LOC: 4 EAST ACU 14:15
PROVIDERS: Registered Nurse; Specialist; Student in an Organized Health Care Education/Training Program; ADMITTING PHYSICIAN Internal Medicine; ATTENDING PHYSICIAN Internal Medicine; CONSULT PHYSICIAN Internal Medicine Gastroenterology; EMERGENCY PHYSICIAN Emergency Medicine; FAMILY PHYSICIAN Family Medicine
PROC: 0DJD8ZZ Inspection of Lower Intestinal Tract, Via Natural or Artificial Opening Endoscopic (ICD-10-PCS; 2024-10-15)
DX: K55.9 Vascular disorder of intestine, unspecified (principal); D62 Acute posthemorrhagic anemia; K50.90 Crohn's disease, unspecified, without complications; K63.3 Ulcer of intestine; Z98.0 Intestinal bypass and anastomosis status
CPT/HCPCS: 85014; 85018; 85025; 85610; 85652; 99285